=== PATIENT | female | born 1970 | race Caucasian/White ===

== ENCOUNTER → 2018-10-17 | Outpatient (CLI) | payer SELFPAY ==
[2018-10-22 16:13] LABS: HPV Reflexed? NOT INDICATED
== END | disposition home or self-care (01) ==
PROVIDERS: Visit Provider Obstetrics & Gynecology
DX: Z12.4 Encounter for screening for malignant neoplasm of cervix (principal)
CPT/HCPCS: 87624; 88175; G0145

== ENCOUNTER → 2021-02-16 | Outpatient (CLI) | payer OTHER, SELFPAY ==
[2021-02-19 03:08] LABS: Chlamydia By Nucleic Acid AMP Negative (Negative)
[2021-02-19 09:15] LABS: Gonococcus By Nucleic Acid AMP Negative (Negative)
[2021-02-21 16:11] LABS: HPV Reflexed? NOT INDICATED
== END | disposition home or self-care (01) ==
LOC: LABSPEC 14:04
PROVIDERS: Visit Provider Obstetrics & Gynecology
DX: Z12.4 Encounter for screening for malignant neoplasm of cervix (principal); Z11.3 Encounter for screening for infections with a predominantly sexual mode of transmission
CPT/HCPCS: 87491; 87591; 88175; G0145